=== PATIENT | female | born 1965 | race Caucasian/White ===

== ENCOUNTER 2018-01-03 06:04 | Day surgery (SDC) | payer OTHER ==
[2018-01-03] MEDS: LACTATED RINGER'S 1,000 ML IV* (06:48)
[2018-01-03] MEDS ORDERED: LIDOCAINE 2% (SDV) 5 ML INJ (07:00)
[2018-01-03] MEDS ORDERED: PROPOFOL 200 MG INJ (07:00)
[2018-01-03] MEDS ORDERED: HYDROCODONE/APAP (5/325) TAB PO ×2 (07:30)
[2018-01-03] MEDS ORDERED: MIDAZOLAM 1 MG/ML 2 ML INJ (07:38)
[2018-01-03] MEDS: CEFAZOLIN 2 GM/50 ML (PMX) 50 ML IVPB (08:00)
[2018-01-03] MEDS ORDERED: DEXAMETHASONE 4 MG/ML 1 ML INJ (08:05)
[2018-01-03] MEDS ORDERED: CEFAZOLIN 1 GM INJ (08:07)
[2018-01-03] MEDS ORDERED: ONDANSETRON 4 MG INJ (08:07)
[2018-01-03] MEDS ORDERED: KETOROLAC 30 MG INJ (08:27)
[2018-01-03] MEDS ORDERED: SUGAMMADEX SODIUM 200 MG/2 ML VIAL IV (08:28)
[2018-01-03] MEDS ORDERED: ROCURONIUM 50 MG INJ (08:29)
[2018-01-03] MEDS: TRIAMCINOLONE ACET 40 MG/ML INJ (08:31)
[2018-01-03] MEDS: LIDOCAINE 1% (MPF) 30 ML INJ (08:31)
[2018-01-03] MEDS ORDERED: OXYCODONE/ACETAMINOPHEN (5/325) TAB PO ×2 (09:00)
[2018-01-03] MEDS ORDERED: hydrALAzine 20 MG INJ IV (09:00)
[2018-01-03] MEDS ORDERED: EPHEDrine SULFATE 50 MG/5 ML SYG IV (09:00)
[2018-01-03] MEDS ORDERED: ALBUTEROL 0.083% (NEB) 2.5 MG/3 ML AMP HHN (09:00)
[2018-01-03] MEDS ORDERED: HYDROmorphONE 1 MG/5 ML IV SYRINGE IV ×3 (09:00)
[2018-01-03] MEDS ORDERED: KETOROLAC 30 MG INJ IV (09:00)
[2018-01-03] MEDS ORDERED: FENTAnyl 50 MCG/ML VIAL IV ×3 (09:00)
[2018-01-03] MEDS ORDERED: LABETALOL HCL 20MG INJ IV (09:00)
[2018-01-03] MEDS ORDERED: MIDAZOLAM 1 MG/ML 2 ML INJ IV (09:00)
[2018-01-03] MEDS ORDERED: ONDANSETRON 4 MG INJ IV (09:00)
[2018-01-03] MEDS ORDERED: DIPHENHYDRAMINE 50 MG INJ IV (09:00)
[2018-01-03] MEDS ORDERED: MEPERIDINE 25 MG INJ IV (09:00)
[2018-01-03] MEDS: METOCLOPRAMIDE 10 MG INJ IV (09:20)
[2018-01-03] MEDS: ONDANSETRON 4 MG INJ IV (09:20)
== END 2018-01-03 10:41 | disposition home or self-care (01) ==
LOC: SDS 06:04
DX: M23.222 Derangement of posterior horn of medial meniscus due to old tear or injury, left knee (principal); M94.262 Chondromalacia, left knee
CPT/HCPCS: 29881